=== PATIENT | male | born 1995 | race Two or more races ===

== ENCOUNTER 2018-08-19 12:44 | Emergency (ER) | payer SELFPAY ==
[~2018-08-19] VITALS: Ht 185.4 cm; Wt 83.3 kg
[2018-08-19] MEDS ORDERED: ONDANSETRON 2MG/ML, 2ML IVPush ONE (13:30)
[2018-08-19] MEDS ORDERED: HYDROmorphone 2 MG/ML, 1ML IVPush PRN (13:30)
[2018-08-19] MEDS ORDERED: DIPH,PERTUSS(ACELL),TET VAC/PF 0.5 ML IM-VACC ONE ×2 (13:30→13:47)
[2018-08-19] MEDS ORDERED: CEFAZOLIN PMX 1GM/50ML 50 ML IVPB ONE (13:30)
[2018-08-19] MEDS ORDERED: SODIUM CHLORIDE 0.9% 1,000ML IVBOLUS ONE (13:30)
[2018-08-19] MEDS ORDERED: SODIUM CHLORIDE FLUSH 10ML SYR IVF ONE (13:30)
[2018-08-19] MEDS ORDERED: CEFAZOLIN 1,000 MG ONE (13:47)
[2018-08-19] MEDS ORDERED: ACETAMINOPHEN 500 MG TABLET ONE (13:47)
[2018-08-19] MEDS ORDERED: CEFAZOLIN 1,000 MG IM ONE (14:00)
[2018-08-19] MEDS ORDERED: ACETAMINOPHEN 500 MG TABLET PO ONE (14:00)
[2018-08-19] MEDS ORDERED: BACITRACIN ZINC OINT 500U/GM, 0.9 GM ONE (15:09)
[2018-08-19 15:31] VITALS: BP 131/84
== END 2018-08-19 15:34 | disposition home or self-care (01) ==
LOC: ED 15:30
DX: S91.341A Puncture wound with foreign body, right foot, initial encounter (principal); X58.XXXA Exposure to other specified factors, initial encounter; Y93.89 Activity, other specified; Y92.009 Unspecified place in unspecified non-institutional (private) residence as the place of occurrence of the external cause; Y99.8 Other external cause status
CPT/HCPCS: 73630; 90471; 90715; 96372; 99284; J0690